=== PATIENT | male | born 1985 | race Caucasian/White ===

== ENCOUNTER 2018-05-04 09:30 | Emergency (ER) | payer MEDICAID ==
[~2018-05-04] VITALS: Ht 170.2 cm; Wt 70.5 kg
[2018-05-04] MEDS ORDERED: ACETAMINOPHEN 325 MG TABLET PO ONE (10:00)
[2018-05-04] MEDS ORDERED: GuaiFENesin/D-METHORPHAN [SUGAR-FREE] 200-20MG/10 ML SYRUP UDCUP PO ONE (10:00)
[2018-05-04 10:27] VITALS: BP 125/79
== END 2018-05-04 10:29 | disposition home or self-care (01) ==
LOC: EMS 09:35
DX: J06.9 Acute upper respiratory infection, unspecified (principal)
CPT/HCPCS: 99283

== ENCOUNTER 2019-05-11 08:53 | Emergency (ER) | payer MEDICAID ==
[~2019-05-11] VITALS: Ht 170.2 cm; Wt 78.0 kg
[2019-05-11] MEDS ORDERED: IBUP-2354 PO (08:56)
[2019-05-11] MEDS ORDERED: HYDROCODONE/ACETAMINOPHEN 5-325 MG TABLET PO ONE (10:00)
[2019-05-11] MEDS ORDERED: IBUPROFEN 800 MG TABLET PO ONE (10:15)
[2019-05-11 11:53] VITALS: BP 119/84
== END 2019-05-11 11:55 | disposition home or self-care (01) ==
LOC: EMS 08:54
DX: S96.912A Strain of unspecified muscle and tendon at ankle and foot level, left foot, initial encounter (principal); X58.XXXA Exposure to other specified factors, initial encounter; Y93.89 Activity, other specified; Y92.89 Other specified places as the place of occurrence of the external cause; Y99.0 Civilian activity done for income or pay

== ENCOUNTER 2019-09-30 02:03 | Emergency (ER) | payer MEDICAID ==
[~2019-09-30] VITALS: Ht 172.7 cm; Wt 86.4 kg
[2019-09-30 02:19] VITALS: BP 147/86
[2019-09-30] MEDS ORDERED: DiphenhydrAMINE HCL 25 MG CAPSULE PO ONE (02:45)
[2019-09-30] MEDS ORDERED: PredniSONE 20 MG TABLET PO ONE (02:45)
== END 2019-09-30 03:49 | disposition home or self-care (01) ==
LOC: EMS 02:05
DX: T78.1XXA Other adverse food reactions, not elsewhere classified, initial encounter (principal); X58.XXXA Exposure to other specified factors, initial encounter
CPT/HCPCS: 99283; J7512